=== PATIENT | male | born 1960 | race Caucasian/White ===

== ENCOUNTER 2017-07-31 14:30 | Emergency (ER) | payer MEDICAID ==
[~2017-07-31] VITALS: Ht 185.4 cm; Wt 100.0 kg
[2017-07-31 20:56] VITALS: BP 126/88
== END 2017-07-31 21:08 | disposition home or self-care (01) ==
LOC: ER 14:30
DX: S63.287A Dislocation of proximal interphalangeal joint of left little finger, initial encounter (principal); F10.129 Alcohol abuse with intoxication, unspecified; R41.82 Altered mental status, unspecified; X58.XXXA Exposure to other specified factors, initial encounter; Y93.89 Activity, other specified; Y92.89 Other specified places as the place of occurrence of the external cause; Y99.8 Other external cause status
CPT/HCPCS: 26770; 36415; 70450; 73140; 80320; 82948; 99285

== ENCOUNTER 2017-08-17 10:44 | Emergency (ER) | payer MEDICAID ==
[~2017-08-17] VITALS: Ht 182.9 cm; Wt 87.7 kg
[~2017-08-17 10:44] MED LIST: FOLI0.4T2 PO; LORA0.5T PO; MULT1TAB74 PO; THI100T PO
[2017-08-17] MEDS ORDERED: BUPIVAcaine/PF 2.5mg/ml (0.25%) 10ml vial IJ ONE (12:05)
[2017-08-17 12:43] VITALS: BP 111/66
[2017-08-17] MEDS ORDERED: SULF1TAB49 PO (13:18)
[2017-08-17] MEDS ORDERED: CEPH-572 PO (13:18)
[2017-08-17] MEDS ORDERED: bacitracin 15gm ointment TP ONE (13:20)
== END 2017-08-17 16:14 | disposition home or self-care (01) ==
LOC: ER 10:44
DX: S61.512A Laceration without foreign body of left wrist, initial encounter (principal); S93.402A Sprain of unspecified ligament of left ankle, initial encounter; S80.212A Abrasion, left knee, initial encounter; S80.211A Abrasion, right knee, initial encounter; W17.2XXA Fall into hole, initial encounter; Y93.01 Activity, walking, marching and hiking; Y92.480 Sidewalk as the place of occurrence of the external cause; Y99.8 Other external cause status
CPT/HCPCS: 12002; 73610; 99284; A6266; A6446; A6449; J3490